=== PATIENT | female | born 1995 ===

== ENCOUNTER 2024-03-03 12:28 | Inpatient (IN) | payer SELFPAY ==
[2024-03-03] MEDS: Lactated Ringers 1,000 ML IV SCH (15:25)
[2024-03-03] MEDS ORDERED: Ondansetron 4 MG/2 ML SDV IVPUSH PRN ×2 (15:28→16:38)
[2024-03-03] MEDS ORDERED: Misoprostol 200 MCG Tab PO PRN (15:28)
[2024-03-03] MEDS ORDERED: Nalbuphine 10 MG/0.5 ML Syringe IVPUSH PRN (15:28)
[2024-03-03] MEDS ORDERED: Sodium Chloride 0.9% 20 ML SDV IV PRN (15:28)
[2024-03-03] MEDS ORDERED: Sodium Chloride 0.9% 2.5 ML Syringe FLUSH PRN (15:28)
[2024-03-03] MEDS ORDERED: Tranexamic Acid IN NACL,ISO-OS 1,000 MG in Premix Bag 1 BAG IV PRN ×2 (15:28→16:38)
[2024-03-03] MEDS ORDERED: Water For Irrigation,Sterile 1,000 ML Container IRR PRN (15:28)
[2024-03-03] MEDS ORDERED: Sodium Chloride 0.9% 10 ML Syringe FLUSH PRN (15:28)
[2024-03-03] MEDS ORDERED: Carboprost Tromethamine 250 MCG/1 mL Vial IM PRN ×2 (15:28→16:38)
[2024-03-03] MEDS ORDERED: Lidocaine 1% 50 ML MDV INJECT PRN (15:28)
[2024-03-03] MEDS ORDERED: Methylergonovine 0.2 MG/1 ML Amp IM PRN ×2 (15:28→16:38)
[2024-03-03 15:37] LABS: HEMATOCRIT 34.8 % (37.0-47.0); HEMOGLOBIN 12.3 g/dL (12.0-16.0); MEAN CORPUSCULAR HEMOGLOBIN 31.5 pg (28.0-32.0); MEAN CORPUSCULAR HGB CONC 35.3 g/dL (32.0-36.0); MEAN PLATELET VOLUME 10.1 fL (9.4-12.3); PLATELET COUNT,PLT 237 K/uL (150-400); RED BLOOD CELL COUNT 3.91 M/uL (4.10-5.30); WHITE BLOOD CELL COUNT,WBC 11.33 K/uL (3.9-11.3)
[2024-03-03] MEDS: Oxytocin/0.9 % Sodium Chloride 30 UNIT/500 ML BAG IV SCH (16:25)
[2024-03-03] MEDS ORDERED: Ibuprofen 800 MG Tab PO PRN (16:38)
[2024-03-03] MEDS ORDERED: Docusate Sodium 100 MG Cap PO PRN (16:38)
[2024-03-03] MEDS ORDERED: Misoprostol 200 MCG Tab RECTAL PRN (16:38)
[2024-03-03] MEDS ORDERED: Bisacodyl 10 MG Supp RECTAL PRN (16:38)
[2024-03-03] MEDS ORDERED: diphenhydrAMINE 50 MG Cap PO PRN (16:38)
[2024-03-03] MEDS ORDERED: Benzocaine/Menthol 20%-0.5% Spray 78 GM Cannister TOP PRN (16:38)
[2024-03-03] MEDS ORDERED: Simethicone 80 MG Tab.Chew PO PRN (16:38)
[2024-03-03] MEDS ORDERED: Sennosides 8.6 MG Tab PO PRN (16:38)
[2024-03-03] MEDS ORDERED: Acetaminophen 500 MG Tab PO PRN (16:38)
[2024-03-03] MEDS ORDERED: Famotidine 20 MG Tab PO PRN (16:38)
[2024-03-03] MEDS ORDERED: Lanolin 100% Cream 7 GM Tube TOP PRN (16:38)
[2024-03-03] MEDS ORDERED: Aluminum Hydroxide/Magnesium Hydroxide/Simethicone XS Susp 30 ML Cup PO PRN (16:38)
[2024-03-03] MEDS ORDERED: Witch Hazel Medicated Pads 40/Jar TOP PRN (16:38)
== END 2024-03-04 20:50 | disposition home or self-care (01) | DRG 807 ==
LOC: MW.OBCHECK 12:28 → MW.OB 12:30 → MW.OBCHECK 15:28 → MW.OB 15:29 → OBSVTOIN 16:25 → MW.OB 22:20
PROVIDERS: ADMIT Obstetrics & Gynecology; ATTEND Obstetrics & Gynecology Obstetrics
PROC: 10E0XZZ Delivery of Products of Conception, External Approach (ICD-10-PCS; principal; 2024-03-03)
DX: O34.211 Maternal care for low transverse scar from previous cesarean delivery (principal); Z37.0 Single live birth; Z3A.40 40 weeks gestation of pregnancy; O48.0 Post-term pregnancy; Z60.3 Acculturation difficulty
CPT/HCPCS: 36415; 59025; 59409; 59612; 85027; 86592; 86850; 86900; 86901; J2590; J7120